=== PATIENT | female | born 1975 | race Caucasian/White ===

== ENCOUNTER → 2016-10-30 | Outpatient (CLI) | payer BC ==
[~2016-10-30] MED LIST: MTRUNK PO; PRENTAB26 PO; TYLUNK PO
--- NOTE | 2016-11-02 08:00 | MAMMOGRAPHY REPORT ---
BILATERAL DIGITAL SCREENING MAMMOGRAM TOMOSYNTHESIS WITH CAD: 10/30/2016 CLINICAL HISTORY: Routine screening. Patient has no complaints. TECHNIQUE: Breast tomosynthesis in addition to standard 2D mammography was performed. Current study was also evaluated with a Computer Aided Detection (CAD) system. COMPARISON: Comparison is made to exams dated: 10/30/2015 mammogram, 10/23/2014 mammogram, and 09/23/19 12 mammogram - [facility]. BREAST COMPOSITION: There are scattered areas of fibroglandular density in both breasts. FINDINGS: The parenchymal pattern is unchanged. No suspicious mass, architectural distortion or clu ster of microcalcifications is seen. IMPRESSION: ACR BI-RADS CATEGORY 1: NEGATIVE There is no mammographic evidence of malignancy. A 1 year screening mammogram is recommended. The pa tient will receive written notification of the results. Approximately 10% of breast cancers are not detected with mammography. A negative mammographic report should not delay biopsy if a clinically suggestive mass is present. Tressa Cervantes M.D. ay/:10/30/2016 15:34:37 Vein Access Technician: Winifred Anaya RT(R)(M), [facility] letter sent: Normal 1/2 BI-RADS Code: ACR BI-RADS Category 1: Negative
== END | disposition home or self-care (01) ==
LOC: C.MAMM 14:51
PROVIDERS: ATTEND Physician Assistant
DX: Z12.31 Encounter for screening mammogram for malignant neoplasm of breast (principal)

== ENCOUNTER → 2017-11-02 | Outpatient (CLI) | payer BC ==
--- NOTE | 2017-11-04 07:54 | MAMMOGRAPHY REPORT ---
BILATERAL DIGITAL SCREENING MAMMOGRAM TOMOSYNTHESIS WITH CAD: 11/02/2017 CLINICAL HISTORY: Routine screening. Patient has no complaints. TECHNIQUE: The study was acquired using full field digital technology and interpreted from soft copy. Breast tomosynthesis in addition to standard 2D mammography was performed. Current study was also ev aluated with a Computer Aided Detection (CAD) system. COMPARISON: Comparison is made to exams dated: 10/30/2016 mammogram, 10/30/2015 mammogram, 10/23/2014 m ammogram, and 09/23/2011 mammogram - [facility]. BREAST COMPOSITION: The tissue of both breasts is heterogeneously dense, which may obscure small mass es. FINDINGS: There is a 6 mm asymmetry in the posterior right breast along the posterior nipple line on the MLO view that may project slightly lateral to the posterior nipple line on the CC view. Although this could represent normal overlapping tissue, additional spot compression tomosynthesis views and possible ultrasound are recommended. No other suspicious mass, architectural distortion or cluster of microcalcifications is seen. IMPRESSION: ACR BI-RADS CATEGORY 0: INCOMPLETE EVALUATION: NEED ADDITIONAL IMAGING EVALUATION The 6 mm asymmetry in the posterior right breast along the posterior nipple line on the MLO view need s additional evaluation. The patient will be called to schedule an appointment. Some breast cancers are not detected with mammography. A negative mammographic report should not paige y biopsy if a clinically suggestive mass is present. Tressa Cervantes M.D. ay/:11/02/2017 21:09:56 Salesperson Driver: RT Usman(Sakshi)(Orlin)([place]), [facility] letter sent: Addl Imaging 0 BI-RADS Code: ACR BI-RADS Category 0: Incomplete Evaluation: Need Additional Imaging Evaluation
== END | disposition home or self-care (01) ==
LOC: C.MAMM 15:11
PROVIDERS: ATTEND Physician Assistant
DX: Z12.31 Encounter for screening mammogram for malignant neoplasm of breast (principal); N64.89 Other specified disorders of breast

== ENCOUNTER → 2017-11-12 | Outpatient (CLI) | payer BC ==
--- NOTE | 2017-11-12 14:37 | MAMMOGRAPHY REPORT ---
UNILATERAL RIGHT DIGITAL DIAGNOSTIC MAMMOGRAM TOMOSYNTHESIS AND TARGETED RIGHT ULTRASOUND: 11/12/2017 CLINICAL HISTORY: Callback from screening mammogram for right breast asymmetry. The patient reports a family history of breast cancer in 2 aunts and a grandmother. TECHNIQUE: The study was acquired using full field digital technology and interpreted from soft copy. Breast tomosynthesis in addition to standard 2D mammography was performed. Spot compression right C C and MLO 2D and tomosynthesis images were obtained. COMPARISON: Comparison is made to exams dated: 11/02/2017 mammogram, 10/30/2016 mammogram, 10/30/2015 m ammogram, 10/23/2014 mammogram, and 09/23/2011 mammogram - [facility]. BREAST COMPOSITION: The tissue of right breast is heterogeneously dense, which may obscure small mass es. FINDINGS: The right superior posterior breast asymmetry on the MLO view is less prominent on the spot compressi on views. The asymmetry has the appearance of normal fibroglandular tissue on the additional tomosyn thesis images, without a discrete mass, architectural distortion, or other suspicious abnormality see n. Additionally, the asymmetry appears more similar to prior exams on the additional views including the 2014 exam. Targeted ultrasound was performed of the right superior breast in the region of the mammographic asym metry. No suspicious masses or other suspicious sonographic abnormalities are evident. Incidentally noted were a few small anechoic benign cysts, including a 4 mm cyst in the right 2:00 breast, 4 cm f rom the nipple and a 4 mm cyst in the right 12:00 periareolar breast. IMPRESSION: ACR-BI-RADS CATEGORY 3: PROBABLY BENIGN, ULTRASOUND ACR-BI-RADS CATEGORY 3: PROBABLY MARGO GN The right superior posterior breast asymmetry is less prominent on the additional spot compression vi ews, without a suspicious sonographic correlate evident. The asymmetry is probably benign and likely represents normal fibroglandular tissue. Recommend follow-up diagnostic tomosynthesis mammograms an d possible targeted ultrasound of the right breast in 6 months to confirm stability. The patient has been verbally notified of the results. Some breast cancers are not detected with mammography. A negative mammographic report should not paige y biopsy if a clinically suggestive mass is present. Maryjane Corral M.D. /:11/12/2017 09:54:29 Choker Setter: RT Monique(R)(M), [facility]; Maryjane Corral MD, [facility] letter sent: Follow Up Recommended 3 OVERALL STUDY BIRADS: 3 Probably benign
== END | disposition home or self-care (01) ==
LOC: C.MAMM 09:24
PROVIDERS: ATTEND Physician Assistant
DX: N64.89 Other specified disorders of breast (principal)